=== PATIENT | female | born 1980 | race Caucasian/White ===

== ENCOUNTER → 2017-03-19 | Outpatient (CLI) | payer OTHER ==
--- NOTE | 2017-03-19 12:14 | DIAGNOSTIC IMAGING REPORT ---
ULTRASOUND KIDNEYS AND BLADDER CLINICAL HISTORY: Benign renal neoplasm. COMPARISON STUDY: No priors. TECHNIQUE: Real-time, grayscale, and color flow sonography of the kidneys and bladder is performed. Images are reviewed in the transverse and longitudinal planes. FINDINGS: Kidneys: The kidneys are normal in size and echotexture. The right kidney measures 10.8 x 4.0 x 5.6 cm and the left kidney measures 10.2 x 4.5 x 6.2 cm. There is no hydronephrosis. No shadowing renal calculi are identified. There is no sonographic evidence of solid mass lesion. No perinephric fluid is identified. Bladder: The bladder is normal in appearance. Bilateral ureteral jets were seen. IMPRESSION: 1. Unremarkable sonographic assessment of the kidneys and bladder. 2. Correlation with any prior outside imaging studies is recommended given the reported history of benign neoplasm. Electronically signed by: Elijah Ayala M.D. 03/19/2017 12:13 PM Dictated Date/Time: 03/19/2017 12:12 PM
== END | disposition home or self-care (01) ==
LOC: C.ULTR 11:46
PROVIDERS: ATTEND Urology
DX: D30.00 Benign neoplasm of unspecified kidney (principal)